=== PATIENT | male | born 1945 | race African-American/Black ===

== ENCOUNTER 2018-02-10 19:50 | Inpatient (IN) | payer MEDICARE, MEDICAID ==
[~2018-02-10] VITALS: Ht 177.8 cm; Wt 126.2 kg
[2018-02-10] MEDS ORDERED: VANCOMYCIN 1 G PREMIX 200 ML IV ONE (21:00)
[2018-02-10] MEDS ORDERED: MORPHINE SULFATE 2 MG/ML CPJ (NOT FOR IM USE) IV ONE (21:00)
[2018-02-10] MEDS ORDERED: ASPIRIN 325MG EC TABLET PO ONE (21:00)
[2018-02-10] MEDS ORDERED: PIPERACILLIN/TAZ 3.375G PREMIX 50 ML IV ONE (21:00)
[2018-02-10] MEDS ORDERED: SODIUM CHLORIDE 0.9% 1000ML BAG (SEPSIS BOLUS) IV ONE (21:00)
[2018-02-10 22:04] LABS: HEMATOCRIT. 35.6 % (42.0-52.0); HEMOGLOBIN. 11.3 g/dL (14.0-18.0); MEAN CORPUSCULAR HEMOGLOBIN 28.4 pg (28.0-32.0); MEAN CORPUSCULAR VOLUME 89.4 fL (80.0-94.0); MEAN PLATELET VOLUME 8.8 fl (7.4-10.4); PLATELET 141 x1000/uL (130-400); RED BLOOD CELL COUNT 3.98 mill/uL (4.7-6.1)
[2018-02-10 22:08] LABS: CHLORIDE 107 mEq/L (98-107)
[2018-02-10 22:10] LABS: INR 1.3; PARTIAL THROMBOPLASTIN TIME 30.1 sec (23.4-31.0); PROTHROMBIN TIME 13.1 sec (9.4-11.6)
[2018-02-10 22:34] LABS: PLATELET ESTIMATE NORMAL
[2018-02-10 23:38] LABS: CLARITY URINE CLEAR (CLEAR); COLOR URINE DARK YELLOW (YELLOW); KETONES URINE TRACE (NEGATIVE); LEUKOCYTE ESTERASE URINE NEGATIVE (NEGATIVE); NITRITE URINE NEGATIVE (NEGATIVE); OCCULT BLOOD URINE 2+ (NEGATIVE); PROTEIN URINE 4+ (NEGATIVE); SPECIFIC GRAVITY URINE 1.028 (1.005-1.030); UROBILINOGEN URINE 0.2 E.U./dL (0.2-1.0)
[2018-02-11] MEDS ORDERED: ONDANSETRON HCL 4MG/2ML VIAL IV STA (00:43)
[2018-02-11] MEDS ORDERED: MORPHINE SULFATE 4 MG/ML CPJ (NOT FOR IM USE) IV STA (00:43)
[2018-02-11] MEDS ORDERED: FUROSEMIDE 40MG/4ML VIAL IVP ONE (02:15)
[2018-02-11] MEDS ORDERED: ACETAMINOPHEN 500MG TABLET ONE (10:48)
[2018-02-11] MEDS ORDERED: ACETAMINOPHEN 325MG TABLET PO PRN (11:15)
[2018-02-11] MEDS: MORPHINE SULFATE 4 MG/ML CPJ (NOT FOR IM USE) IV PRN ×2 (11:21→19:23)
[2018-02-11] MEDS ORDERED: CLONIDINE 0.1MG TABLET PO PRN (16:00)
[2018-02-11] MEDS ORDERED: DILTIAZEM HCL 60MG TABLET PO SCH (17:00)
[2018-02-11 17:20] VITALS: BP 131/63
[2018-02-11 19:00] VITALS: BP 131/63
[2018-02-11] MEDS: ENOXAPARIN 150MG/ML SYR SUBCUT SCH (19:22)
[2018-02-11 20:00] VITALS: BP 124/59
[2018-02-11] MEDS: DILTIAZEM HCL 30MG TABLET PO SCH (22:01)
[2018-02-11] MEDS ORDERED: ACET-2708 PO (22:44)
[2018-02-11] MEDS ORDERED: DILT60TA35 PO (22:44)
[2018-02-11] MEDS ORDERED: APIX5TAB PO (22:44)
[2018-02-11] MEDS ORDERED: PRED5TAB PO (22:44)
[2018-02-11] MEDS ORDERED: NORT50CA PO (22:44)
[2018-02-11] MEDS ORDERED: HYDR-4001 PO (22:44)
[2018-02-11] MEDS ORDERED: DOCU250C69 PO (22:44)
[2018-02-11] MEDS ORDERED: ASPI-1159 PO (22:44)
[2018-02-11] MEDS ORDERED: DEXTL PO (22:44)
[2018-02-11] MEDS ORDERED: CARV3.1242 PO (22:44)
[2018-02-11] MEDS ORDERED: BIMA2.5D4 EACHEYE (22:44)
[2018-02-11] MEDS ORDERED: ACET-2178 PO (22:44)
[2018-02-11] MEDS ORDERED: FURO40TA5 PO (22:44)
[2018-02-11] MEDS ORDERED: LOSA25TA12 PO (22:44)
[2018-02-11] MEDS ORDERED: NICO-645 TP (22:44)
[2018-02-11] MEDS ORDERED: ATOR-2 PO (22:44)
[2018-02-11] MEDS ORDERED: FUROSEMIDE 40MG TABLET PO SCH (23:00)
[2018-02-11] MEDS ORDERED: GUAIFENESIN PO SCH (23:00)
[2018-02-11] MEDS ORDERED: ONDANSETRON 4MG ODT PO PRN (23:00)
[2018-02-11] MEDS ORDERED: DEXTROSE 50% WATER 50ML SYRINGE IV PRN (23:15)
[2018-02-11] MEDS ORDERED: HYDROCODONE/ACETAMINOPHEN 5/325MG TABLET PO PRN (23:30)
[2018-02-11] MEDS ORDERED: GUAIFENESIN 200MG/10ML SUGAR FREE UDC PO PRN (23:30)
[2018-02-12] VITALS: BP 151/92
[2018-02-12] MEDS ORDERED: DILTIAZEM HCL 30MG TABLET PO SCH ×2
[2018-02-12] MEDS ORDERED: IPRATROPIUM/ALBUTEROL 0.5-3(2.5)MG/3ML NEB HHN SCH
[2018-02-12] MEDS: INSULIN LISPRO 100 UNITS/ML SUBCUT SCH ×5 (00:27→21:11)
[2018-02-12] MEDS: MORPHINE SULFATE 4 MG/ML CPJ (NOT FOR IM USE) IV PRN ×4 (00:28→15:22)
[2018-02-12] MEDS ORDERED: VANCOMYCIN 1 G PREMIX 200 ML IV NR (01:45)
[2018-02-12] MEDS: IPRATROPIUM/ALBUTEROL 0.5-3(2.5)MG/3ML NEB HHN SCH ×6 (02:04→19:50)
[2018-02-12] MEDS: DILTIAZEM HCL 30MG TABLET PO SCH ×2 (02:45→09:55)
[2018-02-12 04:00] VITALS: BP 137/53
[2018-02-12] MEDS: ENOXAPARIN 150MG/ML SYR SUBCUT SCH (05:08)
[2018-02-12] MEDS: BLOOD SUGAR DIAGNOSTIC STRIP TEST SCH ×4 (06:25→21:02)
[2018-02-12 07:29] LABS: HEMATOCRIT. 34.6 % (42.0-52.0); MEAN CORPUSCULAR HEMOGLOBIN 28.7 pg (28.0-32.0); MEAN CORPUSCULAR VOLUME 90.1 fL (80.0-94.0); MEAN PLATELET VOLUME 9.1 fl (7.4-10.4); PLATELET 125 x1000/uL (130-400); RED BLOOD CELL COUNT 3.84 mill/uL (4.7-6.1); RED CELL DISTRIBUTION WIDTH 18.4 % (11.6-14.6)
[2018-02-12 07:52] LABS: CHLORIDE 100 mEq/L (98-107)
[2018-02-12 08:00] VITALS: BP 137/105
[2018-02-12 08:02] LABS: CREATINE KINASE MB FRACTION 1.3 ng/mL (0.5-3.6)
[2018-02-12 08:03] LABS: LDL CHOLESTEROL 126 mg/dL (5-100)
[2018-02-12 08:05] LABS: CREATINE KINASE 349 IU/L (39-308); HDL CHOLESTEROL 32 mg/dL (40-59)
[2018-02-12] MEDS ORDERED: MEDICATION NOT ON FORMULARY EA (Apixaban (Eliquis) 1 TAB) PO SCH (09:00)
[2018-02-12] MEDS: DOCUSATE SODIUM 250MG CAPSULE PO SCH ×2 (09:00→17:43)
[2018-02-12] MEDS ORDERED: MEDICATION NOT ON FORMULARY EA (Losartan Potassium 25 MG) PO SCH (09:00)
[2018-02-12] MEDS ORDERED: NICOTINE 14MG PATCH TOP SCH (09:00)
[2018-02-12] MEDS ORDERED: ASPIRIN 81MG TABLET PO SCH (09:00)
[2018-02-12] MEDS ORDERED: NICOTINE TP SCH (09:00)
[2018-02-12] MEDS ORDERED: MEDICATION NOT ON FORMULARY EA (Docusate Sodium 250 MG) PO SCH (09:00)
[2018-02-12] MEDS: LOSARTAN POTASSIUM 25 MG TABLET PO SCH (09:54)
[2018-02-12] MEDS: PREDNISONE 5MG TABLET PO SCH (09:54)
[2018-02-12] MEDS: DOCUSATE SODIUM 100MG CAPSULE PO PRN (09:55)
[2018-02-12] MEDS: CARVEDILOL 3.125 MG TABLET PO SCH ×2 (09:55→21:01)
[2018-02-12] MEDS: ACETAMINOPHEN 325MG TABLET PO PRN ×2 (09:55→21:52)
[2018-02-12] MEDS: ASPIRIN 81MG TABLET PO SCH (09:56)
[2018-02-12 10:23] LABS: PLATELET ESTIMATE SLIGHTLY DECREASED
[2018-02-12 12:00] VITALS: BP 94/39
[2018-02-12] MEDS ORDERED: VANCOMYCIN 750 MG PREMIX 150 ML IV NR (12:00)
[2018-02-12] MEDS: DILTIAZEM HCL 90MG TABLET PO SCH ×2 (15:22→21:01)
[2018-02-12 15:23] VITALS: BP 108/60
[2018-02-12] MEDS: NICOTINE 21MG PATCH TD SCH (16:30)
[2018-02-12] MEDS: ENOXAPARIN 120MG/0.8ML SYR SUBCUT SCH (17:44)
[2018-02-12 20:15] VITALS: BP 112/52
[2018-02-12] MEDS ORDERED: MEDICATION NOT ON FORMULARY EA (Nortriptyline Hcl 50 MG) PO SCH (21:00)
[2018-02-12] MEDS ORDERED: MEDICATION NOT ON FORMULARY EA (Atorvastatin Calcium 80 MG) PO SCH (21:00)
[2018-02-12] MEDS ORDERED: MEDICATION NOT ON FORMULARY EA (Bimatoprost (Lumigan) 1 DROP) EACHEYE SCH (21:00)
[2018-02-12] MEDS: NORTRIPTYLINE HCL 25MG CAPSULE PO SCH (21:01)
[2018-02-12] MEDS: ATORVASTATIN CALCIUM 40MG TABLET PO SCH (21:01)
[2018-02-12] MEDS: BRIMONIDINE 0.2% OPHTH DROPS 5ML EACHEYE SCH (21:02)
[2018-02-13] VITALS (8 sets, daily range): BP systolic 92–125; BP diastolic 50–93
[2018-02-13] MEDS: IPRATROPIUM/ALBUTEROL 0.5-3(2.5)MG/3ML NEB HHN SCH ×6 (00:05→20:56)
[2018-02-13] MEDS: MORPHINE SULFATE 4 MG/ML CPJ (NOT FOR IM USE) IV PRN ×3 (04:22→23:31)
[2018-02-13] MEDS: DILTIAZEM HCL 90MG TABLET PO SCH ×4 (04:22→20:21)
[2018-02-13] MEDS: ENOXAPARIN 120MG/0.8ML SYR SUBCUT SCH ×2 (07:06→18:23)
[2018-02-13] MEDS: BLOOD SUGAR DIAGNOSTIC STRIP TEST SCH ×4 (07:07→20:24)
[2018-02-13 07:18] LABS: HEMATOCRIT. 31.7 % (42.0-52.0); HEMOGLOBIN. 10.1 g/dL (14.0-18.0); MEAN CORPUSCULAR HEMOGLOBIN 28.8 pg (28.0-32.0); MEAN CORPUSCULAR VOLUME 90.3 fL (80.0-94.0); MEAN PLATELET VOLUME 9.5 fl (7.4-10.4); PLATELET 112 x1000/uL (130-400); RED BLOOD CELL COUNT 3.51 mill/uL (4.7-6.1); RED CELL DISTRIBUTION WIDTH 18.9 % (11.6-14.6)
[2018-02-13] MEDS: INSULIN LISPRO 100 UNITS/ML SUBCUT SCH ×4 (07:41→21:00)
[2018-02-13] MEDS: PREDNISONE 5MG TABLET PO SCH (08:40)
[2018-02-13] MEDS: ASPIRIN 81MG TABLET PO SCH (08:40)
[2018-02-13] MEDS: CARVEDILOL 3.125 MG TABLET PO SCH ×2 (08:40→20:22)
[2018-02-13] MEDS: DOCUSATE SODIUM 250MG CAPSULE PO SCH ×2 (08:40→18:21)
[2018-02-13] MEDS: ACETAMINOPHEN 325MG TABLET PO PRN (08:40)
[2018-02-13] MEDS: LOSARTAN POTASSIUM 25 MG TABLET PO SCH (08:40)
[2018-02-13] MEDS: NICOTINE 21MG PATCH TD SCH (08:40)
[2018-02-13 09:54] LABS: PLATELET ESTIMATE SLIGHTLY DECREASED
[2018-02-13] MEDS ORDERED: VANCOMYCIN 1250MG in DEXTROSE 5% WATER 250ML IV NR (10:00)
[2018-02-13 11:03] LABS: *AMPHETAMINES SCREEN URINE NEGATIVE (NEGATIVE); *BARBITURATES SCREEN URINE NEGATIVE (NEGATIVE); *BENZODIAZEPINES SCREEN URINE NEGATIVE (NEGATIVE)
[2018-02-13 11:04] LABS: *COCAINE SCREEN URINE NEGATIVE (NEGATIVE); CANNABINOID URINE SCREEN NEGATIVE (NEGATIVE); METHADONE URINE SCREEN NEGATIVE (NEGATIVE); OPIATES URINE SCREEN PRESUMTIVE POSITIVE (NEGATIVE); PHENCYCLIDINE URINE SCREEN NEGATIVE (NEGATIVE)
[2018-02-13] MEDS ORDERED: MORPHINE SULFATE 4 MG/ML CPJ (NOT FOR IM USE) IV PRN (11:15)
[2018-02-13] MEDS ORDERED: SODIUM CHLORIDE 0.9% 1,000 ML IV SCH (15:45)
[2018-02-13 17:58] LABS: BG BASE EXCESS 3.2 mmol/L (-2.0-2.0); BG CARBOXYHEMOGLOBIN 0.6 % (0.5-1.5); BG DEOXYHEMOGLOBIN 4.8 % (0.0-5.0); BG FRACTION INSPIRED OXYGEN 32; BG HCO3 ACT 28.4 mmol/L (22.0-26.0); BG METHEMOGLOBIN 0.2 % (0.0-1.5); BG OXYGEN SATURATION 95.2 % (92.0-98.5); BG OXYHEMOGLOBIN 94.4 % (94.0-97.0); BG PCO2 46.2 mmHg (35.0-45.0); BG PH 7.407 (7.350-7.450); BG PO2 76.5 mmHg (75.0-100.0); BG SAMPLE SITE RIGHT BRACHIAL; BG TOTAL HEMOGLOBIN 11.3 g/dL (12.0-18.0); BG VENT MODE NASAL CANNULA
[2018-02-13] MEDS: FUROSEMIDE 40MG/4ML VIAL IVP SCH (18:21)
[2018-02-13] MEDS: NAFCILLIN SODIUM 1,000 MG in SODIUM CHLORIDE 0.9% 50 ML IV SCH ×2 (18:22→23:39)
[2018-02-13] MEDS: NORTRIPTYLINE HCL 25MG CAPSULE PO SCH (20:21)
[2018-02-13] MEDS: ATORVASTATIN CALCIUM 40MG TABLET PO SCH (20:23)
[2018-02-13] MEDS: BRIMONIDINE 0.2% OPHTH DROPS 5ML EACHEYE SCH (20:30)
[2018-02-13] MEDS: BUDESONIDE 0.5MG/2ML NEB HHN SCH (20:56)
[2018-02-13] MEDS ORDERED: METHYLPREDNISOLONE SOD SUCC 125 MG/2 ML VIAL IV SCH (22:00)
[2018-02-14] VITALS (40 sets, daily range): BP systolic 48–164; BP diastolic 12–76
[2018-02-14] MEDS: IPRATROPIUM/ALBUTEROL 0.5-3(2.5)MG/3ML NEB HHN SCH ×6 (00:59→21:23)
[2018-02-14] MEDS: ACETAMINOPHEN 325MG TABLET PO PRN ×2 (02:10→09:01)
[2018-02-14 02:11] LABS: BG BASE EXCESS 2.8 mmol/L (-2.0-2.0); BG CARBOXYHEMOGLOBIN 0.9 % (0.5-1.5); BG DEOXYHEMOGLOBIN 6.5 % (0.0-5.0); BG FRACTION INSPIRED OXYGEN 32; BG HCO3 ACT 26.4 mmol/L (22.0-26.0); BG METHEMOGLOBIN 0.2 % (0.0-1.5); BG OXYGEN SATURATION 93.4 % (92.0-98.5); BG OXYHEMOGLOBIN 92.4 % (94.0-97.0); BG PCO2 36.9 mmHg (35.0-45.0); BG PH 7.472 (7.350-7.450); BG PO2 63.8 mmHg (75.0-100.0); BG SAMPLE SITE RIGHT BRACHIAL; BG TOTAL HEMOGLOBIN 11.8 g/dL (12.0-18.0); BG VENT MODE NASAL CANNULA
[2018-02-14] MEDS: DILTIAZEM HCL 90MG TABLET PO SCH ×4 (03:00→20:26)
[2018-02-14] MEDS: SODIUM CHLORIDE 0.9% 1,000 ML IV SCH ×2 (03:00→14:40)
[2018-02-14] MEDS: ENOXAPARIN 120MG/0.8ML SYR SUBCUT SCH (05:34)
[2018-02-14] MEDS: NAFCILLIN SODIUM 1,000 MG in SODIUM CHLORIDE 0.9% 50 ML IV SCH ×3 (05:34→17:28)
[2018-02-14 06:44] LABS: HEMATOCRIT. 32.1 % (42.0-52.0); HEMOGLOBIN. 10.3 g/dL (14.0-18.0); MEAN CORPUSCULAR HEMOGLOBIN 28.7 pg (28.0-32.0); MEAN CORPUSCULAR VOLUME 89.2 fL (80.0-94.0); MEAN PLATELET VOLUME 9.2 fl (7.4-10.4); PLATELET 133 x1000/uL (130-400)
[2018-02-14 06:52] LABS: CHLORIDE 100 mEq/L (98-107)
[2018-02-14] MEDS: FUROSEMIDE 40MG/4ML VIAL IVP SCH (07:15)
[2018-02-14] MEDS: BUDESONIDE 0.5MG/2ML NEB HHN SCH ×2 (07:51→21:24)
[2018-02-14] MEDS: INSULIN LISPRO 100 UNITS/ML SUBCUT SCH ×4 (07:53→20:28)
[2018-02-14] MEDS: BLOOD SUGAR DIAGNOSTIC STRIP TEST SCH ×4 (07:53→20:37)
[2018-02-14] MEDS: MORPHINE SULFATE 4 MG/ML CPJ (NOT FOR IM USE) IV PRN ×2 (08:01→21:48)
[2018-02-14] MEDS: DOCUSATE SODIUM 250MG CAPSULE PO SCH ×2 (09:00→17:16)
[2018-02-14] MEDS ORDERED: NOREPINEPHRINE 4 MG in DEXT 5% WATER 246 ML IV PRN (09:00)
[2018-02-14] MEDS: ASPIRIN 81MG TABLET PO SCH (09:01)
[2018-02-14] MEDS: PREDNISONE 20MG TABLET PO SCH (09:01)
[2018-02-14] MEDS: CARVEDILOL 3.125 MG TABLET PO SCH ×2 (09:01→20:25)
[2018-02-14] MEDS: DOCUSATE SODIUM 100MG CAPSULE PO PRN ×3 (09:01→17:14)
[2018-02-14] MEDS: NICOTINE 21MG PATCH TD SCH (09:02)
[2018-02-14] MEDS: HYDROCODONE/ACETAMINOPHEN 5/325MG TABLET PO PRN ×2 (09:27→20:25)
[2018-02-14] MEDS ORDERED: FUROSEMIDE 20MG/2ML VIAL IVP NR (10:30)
[2018-02-14 13:29] LABS: ATYPICAL LYMPHOCYTES 1
[2018-02-14 13:30] LABS: PLATELET ESTIMATE NORMAL
[2018-02-14] MEDS ORDERED: PHENYLEPHRINE 20 MG in DEXT 5% WATER 248 ML IV PRN (14:15)
[2018-02-14] MEDS ORDERED: SODIUM CHLORIDE 0.9% 250 ML IV ONE (14:15)
[2018-02-14] MEDS: ATORVASTATIN CALCIUM 40MG TABLET PO SCH (20:24)
[2018-02-14] MEDS: NORTRIPTYLINE HCL 25MG CAPSULE PO SCH (20:25)
[2018-02-14] MEDS: BRIMONIDINE 0.2% OPHTH DROPS 5ML EACHEYE SCH (20:26)
[2018-02-15] VITALS (31 sets, daily range): BP systolic 87–135; BP diastolic 40–77
[2018-02-15] MEDS: NAFCILLIN SODIUM 1,000 MG in SODIUM CHLORIDE 0.9% 50 ML IV SCH ×5 (00:01→23:11)
[2018-02-15] MEDS: IPRATROPIUM/ALBUTEROL 0.5-3(2.5)MG/3ML NEB HHN SCH ×6 (00:43→20:49)
[2018-02-15] MEDS: DILTIAZEM HCL 90MG TABLET PO SCH ×4 (03:35→20:51)
[2018-02-15 05:22] LABS: HEMATOCRIT. 30.9 % (42.0-52.0); HEMOGLOBIN. 9.9 g/dL (14.0-18.0); MEAN CORPUSCULAR HEMOGLOBIN 28.6 pg (28.0-32.0); MEAN CORPUSCULAR VOLUME 89.7 fL (80.0-94.0); MEAN PLATELET VOLUME 9.2 fl (7.4-10.4); PLATELET 170 x1000/uL (130-400); RED BLOOD CELL COUNT 3.45 mill/uL (4.7-6.1); RED CELL DISTRIBUTION WIDTH 17.9 % (11.6-14.6)
[2018-02-15] MEDS: MORPHINE SULFATE 4 MG/ML CPJ (NOT FOR IM USE) IV PRN ×4 (06:37→20:52)
[2018-02-15] MEDS: ENOXAPARIN 120MG/0.8ML SYR SUBCUT SCH (06:38)
[2018-02-15 06:41] LABS: CHLORIDE 99 mEq/L (98-107)
[2018-02-15] MEDS: BLOOD SUGAR DIAGNOSTIC STRIP TEST SCH ×4 (07:49→21:03)
[2018-02-15] MEDS: ASPIRIN 81MG TABLET PO SCH (08:09)
[2018-02-15] MEDS: NICOTINE 21MG PATCH TD SCH (08:09)
[2018-02-15] MEDS: CARVEDILOL 3.125 MG TABLET PO SCH ×2 (08:09→20:51)
[2018-02-15] MEDS: PREDNISONE 20MG TABLET PO SCH (08:09)
[2018-02-15] MEDS: HYDROCODONE/ACETAMINOPHEN 5/325MG TABLET PO PRN ×2 (08:09→23:02)
[2018-02-15] MEDS: INSULIN LISPRO 100 UNITS/ML SUBCUT SCH ×4 (08:11→21:00)
[2018-02-15] MEDS ORDERED: NA PHOS,M-B/NA PHOS,DI-BA ENEMA 118ML PR NR ×2 (09:15→15:15)
[2018-02-15 10:03] LABS: PLATELET ESTIMATE NORMAL
[2018-02-15] MEDS: DOCUSATE SODIUM 250MG CAPSULE PO SCH ×2 (10:34→16:35)
[2018-02-15] MEDS: SODIUM CHLORIDE 0.9% 1,000 ML IV SCH (13:04)
[2018-02-15] MEDS: BUDESONIDE 0.5MG/2ML NEB HHN SCH ×2 (13:12→20:50)
[2018-02-15 14:10] LABS: TOTAL IRON BINDING CAPACITY 192 ug/dL (250-450)
[2018-02-15] MEDS: HYDROCODONE/ACETAMINOPHEN 10/325MG TABLET PO PRN (14:48)
[2018-02-15] MEDS ORDERED: MAGNESIUM CITRATE 300ML SOLUTION PO NR (16:30)
[2018-02-15] MEDS: ATORVASTATIN CALCIUM 40MG TABLET PO SCH (20:51)
[2018-02-15] MEDS: NORTRIPTYLINE HCL 25MG CAPSULE PO SCH (22:49)
[2018-02-15] MEDS: BRIMONIDINE 0.2% OPHTH DROPS 5ML EACHEYE SCH (22:50)
[2018-02-15] MEDS: ZOLPIDEM TARTRATE 5MG TABLET PO PRN (23:01)
[2018-02-16] VITALS (12 sets, daily range): BP systolic 117–153; BP diastolic 59–107
[2018-02-16] MEDS: IPRATROPIUM/ALBUTEROL 0.5-3(2.5)MG/3ML NEB HHN SCH ×6 (00:59→20:43)
[2018-02-16] MEDS: DILTIAZEM HCL 90MG TABLET PO SCH ×4 (03:50→21:04)
[2018-02-16] MEDS: NAFCILLIN SODIUM 1,000 MG in SODIUM CHLORIDE 0.9% 50 ML IV SCH ×3 (06:37→17:03)
[2018-02-16] MEDS: BLOOD SUGAR DIAGNOSTIC STRIP TEST SCH ×4 (06:37→21:05)
[2018-02-16] MEDS: INSULIN LISPRO 100 UNITS/ML SUBCUT SCH ×4 (06:37→21:00)
[2018-02-16 07:50] LABS: HEMATOCRIT. 32.7 % (42.0-52.0); HEMOGLOBIN. 10.5 g/dL (14.0-18.0); MEAN CORPUSCULAR HEMOGLOBIN 28.3 pg (28.0-32.0); MEAN CORPUSCULAR VOLUME 88.5 fL (80.0-94.0); MEAN PLATELET VOLUME 8.5 fl (7.4-10.4); PLATELET 249 x1000/uL (130-400); RED BLOOD CELL COUNT 3.69 mill/uL (4.7-6.1); RED CELL DISTRIBUTION WIDTH 19.2 % (11.6-14.6)
[2018-02-16] MEDS: NICOTINE 21MG PATCH TD SCH (09:00)
[2018-02-16] MEDS: ASPIRIN 81MG TABLET PO SCH (09:14)
[2018-02-16] MEDS: DOCUSATE SODIUM 250MG CAPSULE PO SCH ×2 (09:14→17:03)
[2018-02-16] MEDS: PREDNISONE 20MG TABLET PO SCH (09:14)
[2018-02-16] MEDS: CARVEDILOL 3.125 MG TABLET PO SCH ×2 (09:15→21:05)
[2018-02-16] MEDS: ENOXAPARIN 120MG/0.8ML SYR SUBCUT SCH (09:16)
[2018-02-16] MEDS: MORPHINE SULFATE 4 MG/ML CPJ (NOT FOR IM USE) IV PRN ×3 (09:32→16:09)
[2018-02-16] MEDS: SODIUM CHLORIDE 0.9% 1,000 ML IV SCH (09:50)
[2018-02-16 14:15] LABS: PLATELET ESTIMATE NORMAL
[2018-02-16 14:38] LABS: PHOSPHORUS 4.9 mg/dL (2.5-4.9)
[2018-02-16 15:28] LABS: HEPATITIS B SURFACE ANTIGEN NEGATIVE
[2018-02-16 15:32] LABS: HEPATITIS B CORE AB IGM NEGATIVE
[2018-02-16 15:33] LABS: HEPATITIS A AB IGM NEGATIVE (NEGATIVE)
[2018-02-16 17:53] LABS: PARTIAL THROMBOPLASTIN TIME 32.2 sec (23.4-31.0); PROTHROMBIN TIME 10.7 sec (9.4-11.6)
[2018-02-16] MEDS: BUDESONIDE 0.5MG/2ML NEB HHN SCH (20:44)
[2018-02-16] MEDS: NORTRIPTYLINE HCL 25MG CAPSULE PO SCH (21:04)
[2018-02-16] MEDS: ATORVASTATIN CALCIUM 40MG TABLET PO SCH (21:04)
[2018-02-16] MEDS: BRIMONIDINE 0.2% OPHTH DROPS 5ML EACHEYE SCH (21:06)
[2018-02-17] VITALS (12 sets, daily range): BP systolic 95–163; BP diastolic 51–95
[2018-02-17] MEDS: IPRATROPIUM/ALBUTEROL 0.5-3(2.5)MG/3ML NEB HHN SCH ×5 (00:13→20:31)
[2018-02-17] MEDS: NAFCILLIN SODIUM 1,000 MG in SODIUM CHLORIDE 0.9% 50 ML IV SCH ×5 (00:13→23:51)
[2018-02-17] MEDS: DILTIAZEM HCL 90MG TABLET PO SCH ×4 (03:41→22:06)
[2018-02-17] MEDS: SODIUM CHLORIDE 0.9% 1,000 ML IV SCH ×2 (04:29→12:56)
[2018-02-17] MEDS: ENOXAPARIN 120MG/0.8ML SYR SUBCUT SCH (05:52)
[2018-02-17] MEDS: BLOOD SUGAR DIAGNOSTIC STRIP TEST SCH ×4 (06:47→21:00)
[2018-02-17] MEDS: INSULIN LISPRO 100 UNITS/ML SUBCUT SCH ×4 (07:20→22:19)
[2018-02-17 09:15] LABS: HEMATOCRIT. 33.3 % (42.0-52.0); HEMOGLOBIN. 10.7 g/dL (14.0-18.0); MEAN CORPUSCULAR HEMOGLOBIN 28.5 pg (28.0-32.0); MEAN CORPUSCULAR VOLUME 89.1 fL (80.0-94.0); MEAN PLATELET VOLUME 8.4 fl (7.4-10.4); PLATELET 324 x1000/uL (130-400); RED BLOOD CELL COUNT 3.74 mill/uL (4.7-6.1); RED CELL DISTRIBUTION WIDTH 18.3 % (11.6-14.6)
[2018-02-17] MEDS: CARVEDILOL 3.125 MG TABLET PO SCH ×2 (09:18→22:05)
[2018-02-17] MEDS: ASPIRIN 81MG TABLET PO SCH (09:19)
[2018-02-17] MEDS: PREDNISONE 20MG TABLET PO SCH (09:19)
[2018-02-17] MEDS: NICOTINE 21MG PATCH TD SCH (09:20)
[2018-02-17] MEDS: MORPHINE SULFATE 4 MG/ML CPJ (NOT FOR IM USE) IV PRN (09:20)
[2018-02-17] MEDS: DOCUSATE SODIUM 250MG CAPSULE PO SCH ×2 (09:30→17:37)
[2018-02-17] MEDS: HYDROMORPHONE HCL/PF 2MG/ML CPJ IV PRN ×3 (11:01→20:47)
[2018-02-17 11:15] LABS: PLATELET ESTIMATE NORMAL
[2018-02-17] MEDS: ZOLPIDEM TARTRATE 5MG TABLET PO PRN (22:05)
[2018-02-17] MEDS: ATORVASTATIN CALCIUM 40MG TABLET PO SCH (22:05)
[2018-02-17] MEDS: BRIMONIDINE 0.2% OPHTH DROPS 5ML EACHEYE SCH (23:51)
[2018-02-18] VITALS (14 sets, daily range): BP systolic 109–159; BP diastolic 57–107
[2018-02-18] MEDS: IPRATROPIUM/ALBUTEROL 0.5-3(2.5)MG/3ML NEB HHN SCH ×3 (01:10→07:52)
[2018-02-18] MEDS: DILTIAZEM HCL 90MG TABLET PO SCH ×3 (03:20→15:08)
[2018-02-18] MEDS: HYDROMORPHONE HCL/PF 2MG/ML CPJ IV PRN ×3 (05:04→15:09)
[2018-02-18] MEDS: ENOXAPARIN 120MG/0.8ML SYR SUBCUT SCH (06:01)
[2018-02-18] MEDS: NAFCILLIN SODIUM 1,000 MG in SODIUM CHLORIDE 0.9% 50 ML IV SCH ×3 (06:02→17:59)
[2018-02-18] MEDS: BLOOD SUGAR DIAGNOSTIC STRIP TEST SCH ×3 (07:02→17:02)
[2018-02-18] MEDS: INSULIN LISPRO 100 UNITS/ML SUBCUT SCH ×3 (08:15→17:50)
[2018-02-18] MEDS: CARVEDILOL 3.125 MG TABLET PO SCH (08:16)
[2018-02-18] MEDS: ASPIRIN 81MG TABLET PO SCH (08:16)
[2018-02-18] MEDS: DOCUSATE SODIUM 250MG CAPSULE PO SCH ×2 (08:16→17:50)
[2018-02-18] MEDS: PREDNISONE 20MG TABLET PO SCH (08:16)
[2018-02-18] MEDS: NICOTINE 21MG PATCH TD SCH (08:17)
[2018-02-18] MEDS ORDERED: CARISOPRODOL 350 MG TABLET PO PRN (10:00)
[2018-02-18] MEDS ORDERED: IPRATROPIUM/ALBUTEROL 0.5-3(2.5)MG/3ML NEB HHN PRN (10:15)
[2018-02-18] MEDS: HYDROCODONE/ACETAMINOPHEN 10/325MG TABLET PO PRN ×2 (11:32→19:50)
[2018-02-18 12:11] LABS: HEMOGLOBIN. 9.9 g/dL (14.0-18.0); MEAN CORPUSCULAR HEMOGLOBIN 28.8 pg (28.0-32.0); MEAN CORPUSCULAR VOLUME 89.9 fL (80.0-94.0); MEAN PLATELET VOLUME 8.6 fl (7.4-10.4); PLATELET 332 x1000/uL (130-400); RED BLOOD CELL COUNT 3.45 mill/uL (4.7-6.1); RED CELL DISTRIBUTION WIDTH 18.7 % (11.6-14.6)
[2018-02-18 17:50] LABS: PLATELET ESTIMATE NORMAL
[2018-02-18 18:34] LABS: T4 FREE 0.88 ng/dL (0.76-1.46)
== END 2018-02-18 21:40 | DRG 314 ==
LOC: ER 20:12 → 6WST 02-11 00:15 → EDBEDREQ 02-11 09:36 → ENRESERV 02-11 14:25 → CVICU 02-14 03:23 → 3WST 02-15 18:46
PROVIDERS: ADMIT Family Medicine Adult Medicine; ATTEND Family Medicine Adult Medicine
PROC: 02HV33Z Insertion of Infusion Device into Superior Vena Cava, Percutaneous Approach (ICD-10-PCS; principal; 2018-02-14)
PROC: B548ZZA Ultrasonography of Superior Vena Cava, Guidance (ICD-10-PCS; 2018-02-14)
DX: T80.211A Bloodstream infection due to central venous catheter, initial encounter (principal); E43 Unspecified severe protein-calorie malnutrition; J96.00 Acute respiratory failure, unspecified whether with hypoxia or hypercapnia; I50.23 Acute on chronic systolic (congestive) heart failure; A41.01 Sepsis due to Methicillin susceptible Staphylococcus aureus; G82.50 Quadriplegia, unspecified; N17.0 Acute kidney failure with tubular necrosis; N18.6 End stage renal disease; J44.1 Chronic obstructive pulmonary disease with (acute) exacerbation; K56.7 Ileus, unspecified; L03.114 Cellulitis of left upper limb; I69.354 Hemiplegia and hemiparesis following cerebral infarction affecting left non-dominant side; I13.2 Hypertensive heart and chronic kidney disease with heart failure and with stage 5 chronic kidney disease, or end stage renal disease; E87.0 Hyperosmolality and hypernatremia; I48.2 Chronic atrial fibrillation; I25.10 Atherosclerotic heart disease of native coronary artery without angina pectoris; B95.61 Methicillin susceptible Staphylococcus aureus infection as the cause of diseases classified elsewhere; Y83.8 Other surgical procedures as the cause of abnormal reaction of the patient, or of later complication, without mention of misadventure at the time of the procedure; D69.6 Thrombocytopenia, unspecified; I25.5 Ischemic cardiomyopathy; E66.01 Morbid (severe) obesity due to excess calories; B19.20 Unspecified viral hepatitis C without hepatic coma; D63.8 Anemia in other chronic diseases classified elsewhere; M17.12 Unilateral primary osteoarthritis, left knee; E11.22 Type 2 diabetes mellitus with diabetic chronic kidney disease; E11.42 Type 2 diabetes mellitus with diabetic polyneuropathy; R14.0 Abdominal distension (gaseous); E78.5 Hyperlipidemia, unspecified; F17.210 Nicotine dependence, cigarettes, uncomplicated; G89.4 Chronic pain syndrome; S50.312A Abrasion of left elbow, initial encounter; S50.311A Abrasion of right elbow, initial encounter; W01.0XXA Fall on same level from slipping, tripping and stumbling without subsequent striking against object, initial encounter; Y93.89 Activity, other specified; Y92.89 Other specified places as the place of occurrence of the external cause; Y99.8 Other external cause status; R91.1 Solitary pulmonary nodule; R26.2 Difficulty in walking, not elsewhere classified; M48.061 Spinal stenosis, lumbar region without neurogenic claudication; M51.37 Other intervertebral disc degeneration, lumbosacral region; M75.32 Calcific tendinitis of left shoulder; Z79.01 Long term (current) use of anticoagulants; Z79.52 Long term (current) use of systemic steroids; Z87.01 Personal history of pneumonia (recurrent); Z87.440 Personal history of urinary (tract) infections; Z95.1 Presence of aortocoronary bypass graft; Z99.2 Dependence on renal dialysis; Z76.5 Malingerer [conscious simulation]; Z68.39 Body mass index [BMI] 39.0-39.9, adult
CPT/HCPCS: 36415; 36569; 36600; 71045; 72148; 73080; 73200; 73560; 74018; 74176; 76705; 76937; 78227; 80048; 80053; 80061; 80076; 80202; 80305; 81003; 82150; 82375; 82550; 82553; 82575; 82607; 82728; 82746; 82805; 82962; 83036; 83540; 83550; 83605; 83690; 83735; 83880; 83970; 84100; 84134; 84145; 84439; 84443; 84481; 84484; 85025; 85379; 85610; 85730; 86705; 86709; 86803; 86850; 86900; 87040; 87077; 87086; 87340; 93005; 93306; 93970; 94640; 96365; 96366; 96368; 96375; 96376; 97162; 97167; 99291; A6261; A9537; C1725; J1170; J1650; J1815; J1940; J2270; J2405; J2543; J3370; J3490; J7030; J7050; J7060; J7512; J7620; J7626